=== PATIENT | female | born 1960 | race Caucasian/White ===

== ENCOUNTER 2019-08-14 11:15 | Inpatient (IN) | payer OTHER ==
[~2019-08-14] VITALS: Ht 177.8 cm; Wt 77.1 kg
[2019-08-14] MEDS ORDERED: UNOBMED (11:28)
[2019-08-14 11:33] VITALS: BP 135/90
--- NOTE | 2019-08-14 11:33 | NUR ---
ED Nurse Note: Pt dropped in by [facility] staff member due to heart pain and difficulty in breathing x 1 week ago. AAO x4, follows commands with no respiratory distress.
--- NOTE | 2019-08-14 11:56 | NUR ---
ED Nurse Note: solar installer technician at the bed side for CXR.
[2019-08-14 12:13] LABS: BASOPHILS % (AUTO) 1.8 % (0.0-2.0); EOSINOPHILS % (AUTO) 2.4 % (0.0-3.0); HEMATOCRIT 46.4 % (37.0-47.0); HEMOGLOBIN 15.1 G/DL (12.0-16.0); LYMPHOCYTES % (AUTO) 37.5 % (20.0-45.0); MEAN CORPUSCULAR VOLUME 87 FL (80-99); MONOCYTES % (AUTO) 7.3 % (1.0-10.0); NEUTROPHILS % (AUTO) 50.9 % (45.0-75.0); PLATELET COUNT 302 K/UL (150-450); RED BLOOD COUNT 5.34 M/UL (4.20-5.40); RED CELL DISTRIBUTION WIDTH 12.6 % (11.6-14.8); WHITE BLOOD COUNT 4.2 K/UL (4.8-10.8)
[2019-08-14 12:24] LABS: ANION GAP 5 mmol/L (5-15); BLOOD UREA NITROGEN 20 mg/dL (7-18); CALCIUM 9.3 MG/DL (8.5-10.1); CARBON DIOXIDE 30 MMOL/L (21-32); CHLORIDE 106 MMOL/L (98-107); POTASSIUM 4.1 MMOL/L (3.5-5.1); SODIUM 141 MMOL/L (136-145)
[2019-08-14 12:38] LABS: ALANINE AMINOTRANSFERASE 19 U/L (12-78); ALBUMIN 3.7 G/DL (3.4-5.0); ALBUMIN/GLOBULIN RATIO 0.9 (1.0-2.7); ALKALINE PHOSPHATASE 88 U/L (46-116); ASPARTATE AMINO TRANSFERASE 9 U/L (15-37); BILIRUBIN,TOTAL 0.3 MG/DL (0.2-1.0); CKMB 1.2 NG/ML (0.0-3.6); CREATINE KINASE 31 U/L (26-308)
--- NOTE | 2019-08-14 13:01 | Diagnostic Imaging Report ---
Indication: Cough Technique: One view of the chest Comparison: none Findings: Lungs and pleural spaces are clear. Heart size is normal. Impression: No acute process
[2019-08-14 13:40] VITALS: BP 142/89
--- NOTE | 2019-08-14 14:20 | NUR ---
ED Nurse Note: pt. refused vre, and cre swab
--- NOTE | 2019-08-14 14:24 | NUR ---
ED Nurse Note: report given to JULIO Caro.
--- NOTE | 2019-08-14 14:27 | Emergency Room Report ---
History of Present Illness General Chief Complaint: Chest Pain Source: Patient Present Illness HPI Patient presents emergency department today complaint chest discomfort. Patient denies any shortness of breath. Patient states that she has not been feeling well for up to a week with exertional chest pain pressure sensation in her chest worse over last couple of days. She denies any fever nausea vomiting or chills. Denies any cough runny nose. States that the pain is nonradiating. Symptoms noted to be moderate to severe. Patient appears to be anxious. Patient states the last time she abused methamphetamine was about a week ago and that was when the chest pain started. No other modifying factors. No other associated signs and symptoms. No other complaints were noted. Allergies: Coded Allergies: PENICILLINS (Verified Allergy, Unknown, 08/14/19) Patient History Past Medical History: none Past Surgical History: none Social History: Reports: drug use Last Menstrual Period: 5 YEARS AGO Now: No Reviewed Nursing Documentation: PMH: Agreed; PSxH: Agreed Nursing Documentation-PMH Past Medical History: No History, Except For History Of Psychiatric Problem: Yes - ANXIETY, DEPRESSION Review of Systems All Other Systems: negative except mentioned in HPI Physical Exam Vital Signs Date Time Temp Pulse Resp B/P (MAP) Pulse Ox O2 Delivery O2 Flow Rate FiO2 08/14/19 11:23 98.2 111 18 130/92 (105) 94 Room Air Sp02 EP Interpretation: reviewed, normal General Appearance: normal inspection, well appearing, no apparent distress, alert Head: atraumatic Eyes: bilateral eye normal inspection ENT: normal ENT inspection, hearing grossly normal, normal voice Neck: normal inspection, full range of motion, supple, no bony tend Respiratory: normal inspection, lungs clear, normal breath sounds, no respiratory distress, no retraction, no wheezing Cardiovascular #1: regular rate, rhythm, no edema Gastrointestinal: normal inspection, normal bowel sounds, non tender, soft, no guarding, no hernia Genitourinary: no CVA tenderness Musculoskeletal: normal inspection, back normal, normal range of motion Neurologic: normal inspection, alert, responsive, speech normal Psychiatric: normal inspection, judgement/insight normal, mood/affect normal Medical Decision Making Diagnostic Impression: Primary Impression: ACS (acute coronary syndrome) ER Course Patient presented to the emergency department today complaining of chest pain. Differential diagnoses include acute coronary syndrome, pulmonary embolism, pneumothorax, chest wall pain, pleurisy, pericarditis, acute anxiety reaction just to name a few. Given the severity of the patient's presentation I felt this is a highly complex patient. This patient required extensive workup. CBC , chemistry, EKG, chest x-ray, cardiac enzymes, liver profile were all obtained. 12-lead EKG performed for nontraumatic chest pain. RS documentation: EKG was performed. Please refer to below for interpretation. Patient had CBC and chemistry obtained. Both of which were normal. Patient's cardiac enzymes also normal. Patient had normal chest x-ray. Patient's EKG and rhythm strip are also normal. However given patient's presentation recent drug use and poor underlying health noncompliance of felt the patient require admission for monitoring. Case was discussed with caser shoe parts patient will be placed on observation status. Case was discussed with Dr. Jain for admission. Labs Test 08/14/19 11:47 08/14/19 13:51 White Blood Count 4.2 K/UL (4.8-10.8) Red Blood Count 5.34 M/UL (4.20-5.40) Hemoglobin 15.1 G/DL (12.0-16.0) Hematocrit 46.4 % (37.0-47.0) Mean Corpuscular Volume 87 FL (80-99) Mean Corpuscular Hemoglobin 28.3 PG (27.0-31.0) Mean Corpuscular Hemoglobin Concent 32.6 G/DL (32.0-36.0) Red Cell Distribution Width 12.6 % (11.6-14.8) Platelet Count 302 K/UL (150-450) Mean Platelet Volume 5.5 FL (6.5-10.1) Neutrophils (%) (Auto) 50.9 % (45.0-75.0) Lymphocytes (%) (Auto) 37.5 % (20.0-45.0) Monocytes (%) (Auto) 7.3 % (1.0-10.0) Eosinophils (%) (Auto) 2.4 % (0.0-3.0) Basophils (%) (Auto) 1.8 % (0.0-2.0) Sodium Level 141 MMOL/L (136-145) Potassium Level 4.1 MMOL/L (3.5-5.1) Chloride Level 106 MMOL/L (98-107) Carbon Dioxide Level 30 MMOL/L (21-32) Anion Gap 5 mmol/L (5-15) Blood Urea Nitrogen 20 mg/dL (7-18) Creatinine 1.0 MG/DL (0.55-1.30) Estimat Glomerular Filtration Rate 57.1 mL/min (>60) Glucose Level 122 MG/DL (74-106) Calcium Level 9.3 MG/DL (8.5-10.1) Total Bilirubin 0.3 MG/DL (0.2-1.0) Aspartate Amino Transf (AST/SGOT) 9 U/L (15-37) Alanine Aminotransferase (ALT/SGPT) 19 U/L (12-78) Alkaline Phosphatase 88 U/L (46-116) Total Creatine Kinase 31 U/L (26-308) Creatine Kinase MB 1.2 NG/ML (0.0-3.6) Creatine Kinase MB Relative Index 3.8 Troponin I 0.000 ng/mL (0.000-0.056) Total Protein 7.8 G/DL (6.4-8.2) Albumin 3.7 G/DL (3.4-5.0) Globulin 4.1 g/dL Albumin/Globulin Ratio 0.9 (1.0-2.7) EKG Diagnostic Results Rate: normal Rhythm: NSR ST Segments: no acute changes Rhythm Strip Diag. Results EP Interpretation: yes Rate: 80s Rhythm: NSR, no PVC's, no ectopy Chest X-Ray Diagnostic Results Chest X-Ray Diagnostic Results : Chest X-Ray Ordered: Yes # of Views/Limited/Complete: 1 View Indication: Chest Pain EP Interpretation: No Impression: No acute disease Last Vital Signs Date Time Temp Pulse Resp B/P (MAP) Pulse Ox O2 Delivery O2 Flow Rate FiO2 08/14/19 13:40 98.5 89 18 142/89 100 Room Air Status: improved Disposition: ADMITTED INPATIENT Condition: Serious Referrals: [facility]ERR[facility] (PCP) Orlando Fernandez MD Aug 14, 2019 14:27
[2019-08-14] MEDS ORDERED: Enalaprilat 2.5mg/2ml Inj IV PRN (15:00)
[2019-08-14] MEDS ORDERED: dilTIAZem HCl 25mg/5ml Inj IV PRN (15:00)
[2019-08-14] MEDS ORDERED: Morphine Sulfate 2mg/ml Inj(IV/IM USE ONLY) IVP PRN (15:00)
[2019-08-14] MEDS ORDERED: Albuterol/Ipratropium 3ml neb HHN PRN (15:00)
[2019-08-14] MEDS ORDERED: Miralax 17gm pkt ORAL PRN (15:00)
[2019-08-14] MEDS ORDERED: Nitroglycerin Subl 0.4mg tab SL PRN (15:00)
[2019-08-14] MEDS ORDERED: ATIVAN1 MG ORAL (15:17)
[2019-08-14] MEDS ORDERED: ZYPREXA10 MG ORAL (15:17)
[2019-08-14] MEDS ORDERED: TEMAZEPAM15 MG ORAL (15:17)
[2019-08-14] MEDS ORDERED: Subutex PO (15:17)
[2019-08-14] MEDS ORDERED: BENADRYL25 MG ORAL (15:17)
[2019-08-14 16:00] VITALS: BP 119/82
--- NOTE | 2019-08-14 16:09 | NUR ---
NURSE NOTES: Patient transferred from ER via gurney. Patient is alert and oriented. Reviewed medication list with patient. Informed Dr. Prado medications patient takes at [facility]. New order received.
--- NOTE | 2019-08-14 17:28 | History & Physical ---
History and Physical History & Physicial Dictated for Int Med-Dr Jain no. [id number]. Kavon Kwok MD Aug 14, 2019 17:28
--- NOTE | 2019-08-14 18:34 | NUR ---
NURSE NOTES: Patient reports feeling anxious and restless. Dr. Prado notified. New order received.
[2019-08-14] MEDS: LORazepam 1mg tab ORAL PRN (18:42)
--- NOTE | 2019-08-14 19:29 | NUR ---
HAND-OFF: Report given to JULIO Lee.
--- NOTE | 2019-08-14 19:30 | NUR ---
NURSE NOTES: Patient is alert and oriented x4, observed talking on the telephone. In no acute distress, IV patent, asymptomatic, saline locked. Bed is locked in lowest position, side rails x2. No complaints of pain at this time. Will continue to monitor.
[2019-08-14 20:00] VITALS: BP 143/92
[2019-08-14] MEDS: Heparin 5000 units/ml inj SUBQ SCH (21:24)
--- NOTE | 2019-08-14 21:32 | History and Physical Report ---
DATE OF ADMISSION: 08/14/2019 CHIEF COMPLAINT: The patient is a 58-year-old white female, who presents with a chief complaint of chest pain. HISTORY OF PRESENT ILLNESS: Began 1 week previously. The patient began to have chest pain. Chest pain is located underneath the left breast. There is no radiation to the jaw or to the shoulder. Chest pain is on and off. The patient also began to experience shortness of breath today. The patient called 911. The patient was transported to [facility] emergency room. The patient is admitted with chest pain to rule out acute coronary syndrome. REVIEW OF SYSTEMS: CONSTITUTIONAL: The patient denies weight loss or weight gain. The patient denies fevers or chills. HEENT: The patient denies ear or throat pain. The patient denies headache. CARDIOVASCULAR: The patient complains of chest pain as above. The patient denies palpitations. ABDOMEN: The patient denies nausea, vomiting, diarrhea, or constipation. GENITOURINARY: The patient denies dysuria or increased frequency of urination. NEUROMUSCULAR: The patient denies seizures or generalized weakness. PAST MEDICAL HISTORY: Significant for: 1. Anxiety disorder. 2. History of MRSA infection of the left shoulder. PAST SURGICAL HISTORY: Significant for incision and drainage of left shoulder abscess. CURRENT MEDICATIONS: 1. Ativan 1 mg 1 tablet p.o. twice daily. 2. Temazepam 15 mg p.o. at bedtime. 3. Zyprexa 15 mg p.o. at bedtime. 4. Benadryl 50 mg p.o. twice daily. ALLERGIES: No known drug allergies. SOCIAL HISTORY: The patient is engaged. The patient is disabled. The patient denies tobacco use having quit many years ago. The patient denies alcohol use. PHYSICAL EXAMINATION: VITAL SIGNS: Temperature 98.2, respirations 18, pulse 111, and blood pressure 130/92. GENERAL: The patient is a well-developed and well nourished female in no apparent distress. HEENT: Eyes, pupils are equal and responsive to light and accommodation. Extraocular movements are intact. NECK: Supple without lymphadenopathy. CHEST: Lungs are clear to auscultation bilaterally without wheezes or rales. CARDIOVASCULAR: Regular rhythm and rate. S1, S2 are normal without murmurs, rubs, or gallops. ABDOMEN: Soft, nontender, and nondistended. Positive bowel sounds. No evidence of hepatosplenomegaly. Currently, no rebound or guarding noted. EXTREMITIES: Negative for clubbing, cyanosis, or edema. RECTAL/GENITAL: Refused. NEUROLOGIC: Cranial nerves II through XII are grossly intact without focal deficits. Motor strength is 5/5 bilaterally. Deep tendon reflexes are 2+ plantar. LABORATORY STUDIES: WBC 4.2, hemoglobin 15.1, hematocrit 46.4, and platelet 202,000. Sodium 141, potassium 4.1, chloride 106, CO2 30, BUN 20, creatinine 1.0, and glucose 122. Troponin 0.0. An EKG demonstrated normal sinus rhythm at approximately 90 beats per minute. There are no acute ST changes or Q-waves noted. ASSESSMENT: This is a 58-year-old female. 1. Chest pain. 2. Dyspnea. 3. Anxiety disorder. 4. Bipolar disorder. TREATMENT: 1. Chest pain. A Cardiology consultation has been obtained with Dr. Bronson Olea. Serial troponin levels will be performed. We will follow recommendation of Cardiology. 2. Anxiety disorder. Continue Ativan as above. 3. Bipolar depression. Continue Abilify as above. Kavon Kwok M.D. DR: NANCY JOB#: [id number] CC:
[2019-08-15 04:00] VITALS: BP 110/75
[2019-08-15 06:03] LABS: BASOPHILS % (AUTO) 1.3 % (0.0-2.0); HEMATOCRIT 45.3 % (37.0-47.0); HEMOGLOBIN 15.2 G/DL (12.0-16.0); LYMPHOCYTES % (AUTO) 43.7 % (20.0-45.0); MEAN CORPUSCULAR VOLUME 86 FL (80-99); MONOCYTES % (AUTO) 9.1 % (1.0-10.0); NEUTROPHILS % (AUTO) 41.9 % (45.0-75.0); PLATELET COUNT 283 K/UL (150-450); RED BLOOD COUNT 5.25 M/UL (4.20-5.40); RED CELL DISTRIBUTION WIDTH 12.6 % (11.6-14.8); WHITE BLOOD COUNT 4.5 K/UL (4.8-10.8)
[2019-08-15] MEDS: Heparin 5000 units/ml inj SUBQ SCH ×2 (06:05→14:59)
[2019-08-15 06:32] LABS: CHOLESTEROL 345 MG/DL (< 200); HDL CHOLESTEROL 31 MG/DL (40-60); TRIGLYCERIDES 357 MG/DL (30-150)
[2019-08-15 08:00] VITALS: BP 122/74
[2019-08-15] MEDS: LORazepam 1mg tab ORAL PRN ×2 (08:27→17:09)
[2019-08-15] MEDS ORDERED: Aspirin Baby 81mg ORAL SCH (09:00)
--- NOTE | 2019-08-15 10:53 | NUR ---
RADIOLOGY DEPT., CHEST X-RAY PERFORMED IN ER PRIOR TO ADMIT.LAMBERT
--- NOTE | 2019-08-15 11:38 | Consultation ---
History of Present Illness General Date patient seen: Aug 15, 2019 Chief Complaint: Chest Pain Present Illness HPI 58 year old female with hx of psychiatric disease [facility] of chest discomfort. She denies any fever nausea vomiting or chills. Denies any cough runny nose. States that the pain is nonradiating. Symptoms noted to be moderate to severe. Patient appears to be anxious.. No other complaints were noted. Allergies: Coded Allergies: PENICILLINS (Verified Allergy, Unknown, 08/14/19) Medication History Scheduled Diphenhydramine Hcl* (Benadryl*), 50 MG ORAL BID, (Reported) Lorazepam* (Ativan*), 1 MG ORAL BID, (Reported) Olanzapine* (Zyprexa*), 15 MG ORAL HS, (Reported) Temazepam (Temazepam*), 30 MG ORAL BEDTIME, (Reported) [Subutex], 2 MG PO QID, (Reported) Miscellaneous Medications Unable to Obtain Medications (Unable To Obtain Meds), (Reported) Patient History Healthcare decision maker Resuscitation status Full Code Advanced Directive on File Past Medical/Surgical History Past Medical/Surgical History: (1) Schizophrenia Review of Systems All Other Systems: negative except mentioned in HPI Physical Exam General Appearance: WD/WN, no apparent distress Lines, tubes and drains: peripheral HEENT: normocephalic, atraumatic Neck: non-tender, normal alignment Respiratory/Chest: chest wall non-tender, lungs clear Genitourinary/Rectal: normal genital exam Skin Exam: normal pigmentation Neurologic: no motor/sensory deficits Last 24 Hour Vital Signs Date Time Temp Pulse Resp B/P (MAP) Pulse Ox O2 Delivery O2 Flow Rate FiO2 08/15/19 08:37 84 08/15/19 08:29 Room Air 08/15/19 07:21 81 18 97 Room Air 21 08/15/19 04:00 82 08/15/19 04:00 97.1 80 16 110/75 (87) 95 08/14/19 21:00 Room Air 08/14/19 20:24 80 18 96 Room Air 21 08/14/19 20:00 72 08/14/19 20:00 97.2 78 18 143/92 (109) 95 08/14/19 16:00 80 08/14/19 16:00 98.2 81 18 119/82 (94) 97 08/14/19 15:36 Room Air 08/14/19 13:40 98.5 89 18 142/89 100 Room Air Intake and Output 08/14/19 08/15/19 18:59 06:59 Intake Total 120 ml 240 ml Balance 120 ml 240 ml Intake Oral 120 ml 240 ml Laboratory Tests Test 08/14/19 11:47 08/14/19 13:51 08/14/19 17:45 08/15/19 05:25 White Blood Count 4.2 K/UL (4.8-10.8) L 4.5 K/UL (4.8-10.8) L Red Blood Count 5.34 M/UL (4.20-5.40) 5.25 M/UL (4.20-5.40) Hemoglobin 15.1 G/DL (12.0-16.0) 15.2 G/DL (12.0-16.0) Hematocrit 46.4 % (37.0-47.0) 45.3 % (37.0-47.0) Mean Corpuscular Volume 87 FL (80-99) 86 FL (80-99) Mean Corpuscular Hemoglobin 28.3 PG (27.0-31.0) 28.9 PG (27.0-31.0) Mean Corpuscular Hemoglobin Concent 32.6 G/DL (32.0-36.0) 33.5 G/DL (32.0-36.0) Red Cell Distribution Width 12.6 % (11.6-14.8) 12.6 % (11.6-14.8) Platelet Count 302 K/UL (150-450) 283 K/UL (150-450) Mean Platelet Volume 5.5 FL (6.5-10.1) L 5.7 FL (6.5-10.1) L Neutrophils (%) (Auto) 50.9 % (45.0-75.0) 41.9 % (45.0-75.0) L Lymphocytes (%) (Auto) 37.5 % (20.0-45.0) 43.7 % (20.0-45.0) Monocytes (%) (Auto) 7.3 % (1.0-10.0) 9.1 % (1.0-10.0) Eosinophils (%) (Auto) 2.4 % (0.0-3.0) 4.0 % (0.0-3.0) H Basophils (%) (Auto) 1.8 % (0.0-2.0) 1.3 % (0.0-2.0) Sodium Level 141 MMOL/L (136-145) Potassium Level 4.1 MMOL/L (3.5-5.1) Chloride Level 106 MMOL/L (98-107) Carbon Dioxide Level 30 MMOL/L (21-32) Anion Gap 5 mmol/L (5-15) Blood Urea Nitrogen 20 mg/dL (7-18) H Creatinine 1.0 MG/DL (0.55-1.30) Estimat Glomerular Filtration Rate 57.1 mL/min (>60) Glucose Level 122 MG/DL (74-106) H Calcium Level 9.3 MG/DL (8.5-10.1) Total Bilirubin 0.3 MG/DL (0.2-1.0) Aspartate Amino Transf (AST/SGOT) 9 U/L (15-37) L Alanine Aminotransferase (ALT/SGPT) 19 U/L (12-78) Alkaline Phosphatase 88 U/L (46-116) Total Creatine Kinase 31 U/L (26-308) Creatine Kinase MB 1.2 NG/ML (0.0-3.6) Creatine Kinase MB Relative Index 3.8 Troponin I 0.000 ng/mL (0.000-0.056) 0.000 ng/mL (0.000-0.056) Total Protein 7.8 G/DL (6.4-8.2) Albumin 3.7 G/DL (3.4-5.0) Globulin 4.1 g/dL Albumin/Globulin Ratio 0.9 (1.0-2.7) L D-Dimer < 0.19 mg/L FEU Prothrombin Time 10.6 SEC (9.30-11.50) Prothromb Time International Ratio 1.0 (0.9-1.1) Activated Partial Thromboplast Time 30 SEC (23-33) C-Reactive Protein, Quantitative < 0.4 mg/dL (0.00-0.90) Triglycerides Level 357 MG/DL (30-150) H Cholesterol Level 345 MG/DL (< 200) H LDL Cholesterol 247 mg/dL (<100) H HDL Cholesterol 31 MG/DL (40-60) L Cholesterol/HDL Ratio 11.1 (3.3-4.4) H Thyroid Stimulating Hormone (TSH) 1.303 uiU/mL (0.358-3.740) Height (Feet): 5 Height (Inches): 10.00 Weight (Pounds): 170 Medications Current Medications Medications (Trade) Dose Ordered Sig/Paul Route PRN Reason Start Time Stop Time Status Last Admin Dose Admin Acetaminophen (Tylenol) 650 mg Q4H PRN ORAL FEVER 08/14/19 15:00 09/13/19 14:59 Albuterol/ Ipratropium (Albuterol/ Ipratropium) 3 ml Q4H PRN HHN Shortness of Breath 08/14/19 15:00 08/19/19 14:59 Aspirin (ASA) 162 mg DAILY ORAL 08/15/19 09:00 09/14/19 08:59 08/15/19 08:27 Diltiazem HCl (Cardizem) 10 mg Q1H PRN IV heart rate more than 120, 08/14/19 15:00 09/13/19 14:59 Enalaprilat (Vasotec) 2.5 mg Q6H PRN IV sbp more than 160 08/14/19 15:00 09/13/19 14:59 Heparin Sodium (Porcine) (Heparin 5000 units/ml) 5,000 units EVERY 8 HOURS SUBQ 08/14/19 22:00 09/13/19 21:59 08/15/19 06:05 Lorazepam (Ativan) 1 mg BID PRN ORAL For Anxiety 08/14/19 18:45 08/21/19 18:44 08/15/19 08:27 Morphine Sulfate (Morphine Sulfate) 2 mg Q4H PRN IVP severe Pain (Pain Scale 7-10) 08/14/19 15:00 08/21/19 14:59 08/15/19 09:46 Nitroglycerin (Ntg) 0.4 mg Q5M PRN SL Prn Chest Pain 08/14/19 15:00 09/13/19 14:59 Olanzapine (ZyPREXA) 15 mg BEDTIME ORAL 08/14/19 21:00 09/13/19 20:59 08/14/19 21:23 Ondansetron HCl (Zofran) 4 mg Q6H PRN IVP Nausea & Vomiting 08/14/19 15:00 09/13/19 14:59 Pantoprazole (Protonix) 40 mg ACBREAKFAST ORAL 08/15/19 06:30 09/14/19 06:29 08/15/19 06:02 Polyethylene Glycol (Miralax) 17 gm DAILYPRN PRN ORAL Constipation 08/14/19 15:00 09/13/19 14:59 Temazepam (Restoril) 15 mg HSPRN PRN ORAL Insomnia 08/14/19 21:00 08/21/19 20:59 08/14/19 21:23 Assessment/Plan Problem List: (1) Generalized pain ICD Codes: R52 - Pain, unspecified SNOMED: 55726782 (2) Schizophrenia ICD Codes: F20.9 - Schizophrenia, unspecified SNOMED: 79242167 Assessment/Plan: all studies are negative, resume psychiatric meds dc to assisted living Brad Prado MD Aug 15, 2019 11:38
--- NOTE | 2019-08-15 11:49 | NUR ---
Social Work This Sw received a consult due to patient requested to speak with SW about going to a new [facility]. This Sw met with patient who explains she does not want to live in her current [facility], requesting a new one. This Sw informed patient placement will need to happen at the beginning of the month, due to SSI check has been paid to current [facility] (next months check to pay for new [facility]). Patient expressing understanding to this and agreeable with returning to her [facility] today. This SW provided list of contacts for placement into a [facility]. Patient explains she plans to follow up with [facility] placement agency when able.
[2019-08-15 12:01] VITALS: BP 143/83
[2019-08-15] MEDS ORDERED: ACETAMINOPHEN325 M1 ORAL (13:33)
--- NOTE | 2019-08-15 15:35 | NUR ---
*-* INSURANCE *-* ALL AVAILABLE CLINICALS HAVE BEEN FAXED TO: TITA ANDREWS P:[phone] F:[phone] (FAX CLINICALS) MARLO SEVERINO *[phone]
--- NOTE | 2019-08-15 16:31 | Discharge Summary ---
Discharge Summary Hospital Course Date of Admission Aug 14, 2019 at 14:10 Date of Discharge Admitting Diagnosis ACS HPI Anabel Almeida is a 58 year old female who was admitted on Aug 14, 2019 at 14:10 for Acute Coronary Syndrome Hospital Course Discharge Discharge Disposition Patient was discharged to Cade Jain MD Aug 15, 2019 16:31
--- NOTE | 2019-08-15 18:15 | NUR ---
Discharge in Stable condition. Awake ,alert, oriented. ambulatory. transported by [facility] to [facility]. Report given to Kai. Spoke with Jacqueline to have dinner ready for Patient. patient V.S.S. no Chest Pain.
--- NOTE | 2019-08-15 22:30 | Discharge Summary ---
DATE OF ADMISSION: 08/14/2019 DATE OF DISCHARGE: 08/15/2019 HOSPITAL COURSE: This is a 58 years old female with past medical history significant for anxiety and bipolar disorder, who presented to the hospital complaining about chest pain associated with shortness of breath. Shortly after initial evaluation, the patient was admitted to the hospital with chest pain, possible acute coronary syndrome. Throughout the hospital course, the patient's status improved. Serial cardiac enzyme was negative. The patient was followed by Dr. Prado from [facility] and the patient's status improved. She has been discharged back home to be followed as outpatient with her primary physician. FINAL DIAGNOSES: 1. Atypical chest pain. 2. Depression, anxiety, and bipolar disorder. 3. Dyspnea. MEDICATIONS AT DISCHARGE: Continue discharge medication list. ACTIVITY: As tolerated. DIET: Regular diet. FOLLOWUP: The patient was advised to follow up with her primary doctor within one week. Cade Jain M.D. DR: Aleah JOB#: [id number] CC:
--- NOTE | 2019-08-16 17:36 | Cardiology Report ---
APPROVED REPORT EKG Measurement Heart [id number] Normal sinus rhythm Normal ECG
--- NOTE | 2019-08-17 11:58 | Cardiology Report ---
APPROVED REPORT EXAM: Two-dimensional and M-mode echocardiogram with Doppler and color Doppler. INDICATION Left ventricular function M-Mode DIMENSIONS IVSd1.0 (0.7-1.1cm)Left Atrium (MM)2.6 (1.6-4.0cm) LVDd3.9 (3.5-5.6cm)Aortic Root2.6 (2.0-3.7cm) PWd1.0 (0.7-1.1cm)Aortic Cusp Exc.1.8 (1.5-2.0cm) LVDs2.4 (2.5-4.0cm) PWs1.4 cm Normal left ventricular chamber size, systolic function and wall motion. Left ventricular ejection fraction estimated to be 60-65 %. Mild left ventricular hypertrophy. Anterior Echo-free space, may be due to pericardial fat or effusion. All other cardiac chamber sizes are within normal limits. Focal aortic valve sclerosis with adequate cusp excursion. Thickened mitral valve leaflets with normal excursion. Mitral annulus and aortic root calcification. Pulmonic valve not well visualized. Normal tricuspid valve structure. IVC at normal size with physiologic collapse. A color flow and spectral Doppler study was performed and revealed: Trace aortic regurgitation. Trace mitral regurgitation. Mitral diastolic velocities suggest reduced left ventricular relaxation c/w mild LV diastolic dysfunction (Grade I ). Trace tricuspid regurgitation. Tricuspid systolic velocities suggests peak right ventricular systolic pressure of 14 mmHg.
--- NOTE | 2019-08-19 10:13 | Diagnostic Imaging Report ---
APPROVED REPORT CPT Code: 27707 Present Symptoms Comments: BILATERAL LEGS PAIN. BILATERAL: Imaging reveals a patent deep venous system bilaterally. There is no evidence of thrombus within the femoral, popliteal or tibial segments. The greater saphenous veins are also within normal limits. Doppler indicates normal spontaneous flow within these segments.
== END 2019-08-15 18:00 | disposition home or self-care (01) | DRG 203 ==
LOC: EMR 12:00 → 2E 13:30 → OBSVTOIN 14:10 → EDBEDREQ 14:28
DX: R07.89 Other chest pain (principal); R06.00 Dyspnea, unspecified; Z88.0 Allergy status to penicillin; F41.9 Anxiety disorder, unspecified; Z86.14 Personal history of Methicillin resistant Staphylococcus aureus infection; F31.9 Bipolar disorder, unspecified; F20.9 Schizophrenia, unspecified
CPT/HCPCS: 36415; 71045; 80053; 80061; 82550; 82553; 84443; 84484; 85025; 85379; 85610; 85730; 86140; 87081; 93005; 93306; 93970; 94664; 96372; 96375; 99285

== ENCOUNTER 2020-07-27 07:52 | Emergency (ER) | payer OTHER ==
[~2020-07-27] VITALS: Ht 177.8 cm; Wt 72.6 kg
--- NOTE | 2020-07-27 07:37 | Emergency Room Report ---
History of Present Illness Present Illness HPI Patient is a 59-year-old female presents by ambulance for increased abdominal pain. Prior history of recent ER visit to [facility] for similar symptoms. Denies any fever. Had been having worsening abdominal discomfort since last night. Allergies: Coded Allergies: PENICILLINS (Verified Allergy, Unknown, 08/14/19) Patient History Past Medical History: see triage record Reviewed Nursing Documentation: PMH: Agreed; PSxH: Agreed Review of Systems All Other Systems: negative except mentioned in HPI Physical Exam Sp02 EP Interpretation: reviewed, normal General Appearance: normal inspection, well appearing, no apparent distress, alert, GCS 15 Head: atraumatic ENT: normal ENT inspection, hearing grossly normal, normal voice Neck: normal inspection, full range of motion, supple, no bony tend Respiratory: normal inspection, lungs clear, normal breath sounds, no respiratory distress, no retraction, no wheezing Cardiovascular #1: regular rate, rhythm, no edema Gastrointestinal: normal inspection, normal bowel sounds, non tender, soft, no guarding, no hernia Genitourinary: no CVA tenderness Musculoskeletal: normal inspection, back normal, normal range of motion Neurologic: alert, motor strength/tone normal, english language learner teacher III-XII nml as tested, oriented x3, responsive, speech normal, normal inspection Psychiatric: normal inspection, judgement/insight normal, mood/affect normal Medical Decision Making ER Course Patient is a 59-year-old female presents for increased lower abdominal pain. Reports having urinary retention states she attempted to void this morning but was unable to. Reports of increased suprapubic discomfort. Denies any recent dysuria. Patient states that a independent living. Reports taking extra Restoril last night. Also takes narcotic pain medication and reports having prior history of osteoporosis. Patient does not appear to be in any acute distress and has a benign abdominal exam. Bedside ultrasound showed moderate amount of urine in the bladder. Tim Retana MD Jul 27, 2020 07:37
[~2020-07-27 07:52] MED LIST: ACETAMINOPHEN325 M1 ORAL; ATIVAN1 MG ORAL; BENADRYL25 MG ORAL; Subutex PO; TEMAZEPAM15 MG ORAL; UNOBMED; ZYPREXA10 MG ORAL
--- NOTE | 2020-07-27 07:52 | NUR ---
ED Nurse Note: Patient from home and was brought in by [facility] due to abd pain and not being able to urinate for over 24 hours. Last BM was this morning. Noted abdomen to be soft. patient moaning in pain. Dr Mazin rich.
[2020-07-27 08:30] VITALS: BP 184/101
[2020-07-27 08:33] LABS: BASOPHILS % (AUTO) 1.9 % (0.0-2.0); EOSINOPHILS % (AUTO) 7.5 % (0.0-3.0); HEMOGLOBIN 14.9 G/DL (12.0-16.0); LYMPHOCYTES % (AUTO) 29.4 % (20.0-45.0); MEAN CORPUSCULAR VOLUME 86 FL (80-99); MONOCYTES % (AUTO) 11.7 % (1.0-10.0); NEUTROPHILS % (AUTO) 49.4 % (45.0-75.0); PLATELET COUNT 340 K/UL (150-450); RED BLOOD COUNT 5.25 M/UL (4.20-5.40); RED CELL DISTRIBUTION WIDTH 12.5 % (11.6-14.8); WHITE BLOOD COUNT 4.9 K/UL (4.8-10.8)
[2020-07-27 08:34] LABS: APPEARANCE,URINE CLEAR; BILIRUBIN, URINE NEGATIVE (NEGATIVE); GLUCOSE, URINE (UA) NEGATIVE (NEGATIVE); KETONES,URINE NEGATIVE (NEGATIVE); LEUKOCYTE ESTERASE ,URINE NEGATIVE (NEGATIVE); NITRITE,URINE NEGATIVE (NEGATIVE); PH,URINE 6.5 (4.5-8.0); PROTEIN,URINE NEGATIVE (NEGATIVE); UROBILINOGEN,URINE NORMAL MG/DL (0.0-1.0)
[2020-07-27 08:40] LABS: COLOR,URINE YELLOW
--- NOTE | 2020-07-27 08:40 | NUR ---
ED Nurse Note: Collected blood and urine then sent.
[2020-07-27 08:41] LABS: ANION GAP 7 mmol/L (5-15); BLOOD UREA NITROGEN 20 mg/dL (7-18); CALCIUM 9.1 MG/DL (8.5-10.1); CARBON DIOXIDE 29 MMOL/L (21-32); CHLORIDE 104 MMOL/L (98-107); CREATININE 0.7 MG/DL (0.55-1.30); POTASSIUM 4.4 MMOL/L (3.5-5.1); SODIUM 140 MMOL/L (136-145)
[2020-07-27] MEDS ORDERED: Ketorolac 30mg Inj IV ONE (08:45)
[2020-07-27 08:47] LABS: ALANINE AMINOTRANSFERASE 39 U/L (12-78); ALBUMIN 3.5 G/DL (3.4-5.0); ALBUMIN/GLOBULIN RATIO 0.9 (1.0-2.7); ALKALINE PHOSPHATASE 93 U/L (46-116); ASPARTATE AMINO TRANSFERASE 23 U/L (15-37); BILIRUBIN,TOTAL 0.4 MG/DL (0.2-1.0)
[2020-07-27] MEDS ORDERED: Omnipaque-300 100ml vial INJ PRN (09:00)
[2020-07-27] MEDS ORDERED: oxyCODONE HCL/Acetaminophen 5/325mg ORAL ONE (09:00)
--- NOTE | 2020-07-27 09:22 | NUR ---
ED Nurse Note: Patient taken to CT via gurney and stable.
--- NOTE | 2020-07-27 09:42 | NUR ---
ED Nurse Note: patient came back from CT in stable condition.
--- NOTE | 2020-07-27 10:14 | Diagnostic Imaging Report ---
Clinical Indication: Increased lower abdominal pain, suprapubic discomfort, unable to void Technique: No oral contrast utilized, per emergency room physician request IV administration nonionic contrast. Venous phase spiral acquisition obtained through the abdomen and pelvis. Multiplanar reconstructions were generated. Total dose length product 264 mGycm. CTDIvol(s) 5 mGy. Dose reduction achieved using automated exposure control Comparison: none Findings: Lack of enteric contrast administration limits assessment of the GI tract. The appendix is only questionably demonstrated, but no findings to suggest acute appendicitis are evident. There are colonic diverticula. No evidence of acute diverticulitis. There are a few prominent gas filled small bowel loops in the left upper quadrant. No definite transition point.. No free or loculated intraperitoneal gas or fluid is evident. The distal esophagus, stomach, duodenum are unremarkable. The liver, gallbladder, bile ducts, pancreas, spleen, adrenals, kidneys are unremarkable. No retroperitoneal or mesenteric mass or adenopathy. No pelvic mass or adenopathy. Uterus and adnexal structures are unremarkable. The bladder contains a Mary catheter, is nearly empty. There are fairly extensive degenerative changes of the thoracic and lumbar spine noted. The included lung bases demonstrate posterior dependent atelectatic changes. Impression: Limited assessment of the GI tract, due to lack of enteric contrast administration Nonspecific prominent left upper quadrant small bowel loops. Could represent focal ileus or could just be baseline for this patient. No definite acute abnormality otherwise. Mary catheter Other findings as noted, including degenerative spondylosis, posterior dependent pulmonary atelectatic changes The CT scanner at [facility] is accredited by the [employer] and the scans are performed using protocols designed to limit radiation exposure to as low as reasonably achievable to attain images of sufficient resolution adequate for diagnostic evaluation.
[2020-07-27 10:28] VITALS: BP 175/107
[2020-07-27] MEDS ORDERED: COLACE100 MG ORAL (11:26)
--- NOTE | 2020-07-27 11:34 | NUR ---
ED Nurse Note: Waiting for tie up worker for eval per ERMD order.
--- NOTE | 2020-07-27 12:38 | NUR ---
ED Nurse Note: BRUSHER AT BEDSIDE
--- NOTE | 2020-07-27 12:56 | NUR ---
RETAIL FIELD REPRESENTATIVE NOTE SW met w/ pt and discussed her concern/needs. Pt is currently residing at an independent living facility w/ her boyfriend. PT reports her boyfriend and she is looking for a new facility. Pt receives SSI and she is a self-payee. SW provided the community resource packet including the list of independent living facilities. SW encouraged pt to call the facilities next week to secure the beds. Pt presents as depressed that her health has recently deteriorated that her boyfriend may leave her. [facility] provided brief counseling and support. Pt agreed to return to the current independent living facility as she paid the rent for this month. PT verbalized understanding. No other concern/needs expressed by pt.
[2020-07-27 13:10] VITALS: BP 145/90
--- NOTE | 2020-07-27 13:10 | NUR ---
ER DISCHARGE NOTE: Patient is cleared to be discharged per ERMD, pt is aox4, on room air, with stable vital signs. pt was given dc and prescription instructions, pt was able to verbalize understanding, pt id band and iv site removed without complications. pt is able to ambulate with steady gait. pt took all belongings and left with [facility] transportation prov[facility] by hospital.
--- NOTE | 2020-07-27 14:52 | NUR ---
ED Nurse Note: [facility] ambulance driver paramedic in [place] called through [id number] to take pt home. last [id number]
== END 2020-07-27 13:10 | disposition home or self-care (01) ==
LOC: EDBD 07:52 → EMR 08:10
DX: R10.30 Lower abdominal pain, unspecified (principal); Z88.0 Allergy status to penicillin; M47.9 Spondylosis, unspecified
CPT/HCPCS: 36415; 74177; 80053; 81003; 83690; 84484; 85025; 85610; 85730; 93005; 96374; 96375; J1885; J2405; Q9965; Z7502; 99284